=== PATIENT | male | born 1995 | race Caucasian/White ===

== ENCOUNTER 2016-10-08 12:25 | Inpatient (IN) | payer BC, OTHER ==
[2016-10-08] MEDS ORDERED: NS 0.9% 1000 ML* 1,000 ML IV ONE (13:13)
[2016-10-08] MEDS ORDERED: NS 0.9% 1000 ML* 1,000 ML IV SCH (13:15)
--- NOTE | 2016-10-08 13:30 | ED ---
Brijesh Engel Adam, scribed for Auera Garcia MD on 10/08/16 at 1310 . Abdominal Pain/Male - HPI Summary HPI Summary: Pt is a 20yo male who is transferred from [facility] with abdominal pain and a diagnosis of free air on CT scan. Pt states was in usual state of health yesterday morning. Pt reports having abdominal discomfort that developed through the late afternoon and evening. Pt states had decreased appetite sat dinner. Pt reports pain in right side - upper and lower quad as well as LLQ. Pt with discomfort in right testicle with urination. No dysuria, hematuria. Pt reports chills and sweats, no documented fever. Pt states vomited this morning. Pain worsens with movement, and nothing seems to relieve it. He has not had pain like this before. Pt denies trauma. Pt states smoke THC yesterday 5 hours prior to pain. Pt denies diarrhea. Pt was examined at [facility] - had a CT scan which revealel free air. Pt was given analgesia, Vanco, and antiemetic - Pt transferref for eval by surgery. Pt states no nausea at presents. Rates pain 5/10. Pt smoke 1ppd. 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 Negative: Diaphoresis, Cough, Chest Pain, Dizzy, Back Pain, Diarrhea - Allergies/Home Medications Allergies/Adverse Reactions: Allergies Allergy/AdvReac Type Severity Reaction Status Date / Time Penicillins [PCN] Allergy Unknown Verified 10/08/16 13:43 Reaction Details Sulfa Antibiotics Allergy Unknown Verified 10/08/16 13:43 Reaction Details PMH/Surg Hx/FS Hx/Imm Hx Previously Healthy: Yes - Surgical History Surgery Procedure, Year, and Place: Inguinal hernia repain, tonsillectomy - Immunization History Date of Tetanus Vaccine: Up to Date Infectious Disease History: No Infectious Disease History: Denies: Traveled Outside the [place] in Last 30 Days - Family History Known Family History: Positive: Cardiac Disease, Hypertension, Diabetes - Social History Occupation: Employed Full-time Lives: With Family - Father Alcohol Use: None Hx Substance Use: Yes Substance Use Type: Reports: Marijuana Hx Tobacco Use: Yes Smoking Status (MU): Current Every Day Smoker Review of Systems Positive: Fever, Chills, Skin Diaphoresis Eyes: Negative ENT: Negative Cardiovascular: Negative Negative: Chest Pain Negative: Shortness Of Breath, Cough Positive: Abdominal Pain, Nausea. Negative: Diarrhea Genitourinary: Negative Positive: other - Right testicular pain. Dark urine. Skin: Negative Neurological: Negative Psychological: Normal All Other Systems Reviewed And Are Negative: Yes Physical Exam Triage Information Reviewed: Yes Vital Signs On Initial Exam: Initial Vitals Temp Pulse Resp BP Pulse Ox 100.8 F 85 18 116/58 98 10/08/16 12:34 10/08/16 12:34 10/08/16 12:34 10/08/16 12:34 10/08/16 12:34 Vital Signs Reviewed: Yes Appearance: Positive: Ill-Appearing - uncomfortable with movement, Pain Distress Skin: Positive: Warm, Skin Color Reflects Adequate Perfusion, Dry Head/Face: Positive: Normal Head/Face Inspection Eyes: Positive: Normal ENT: Positive: Pharynx normal Neck: Positive: Supple, Nontender Respiratory/Lung Sounds: Positive: Clear to Auscultation, Breath Sounds Present Cardiovascular: Positive: Normal, RRR. Negative: Murmur Abdomen Description: Positive: Distended, Guarding, Peritoneal Signs - +Rosving' s. Negative: Nontender - diffusely tender, increased right upper and right lower quad. + guarding, + distendedn, Soft Bowel Sounds: Positive: Hypoactive Musculoskeletal: Positive: Normal, Strength/ROM Intact Neurological: Positive: Normal, Alert, Oriented to Person Place, Time. Negative : Slurred Speech Psychiatric: Positive: Normal AVPU Assessment: Alert - Gagandeep Coma Scale Best Eye Response: 4 - Spontaneous Best Motor Response: 6 - Obeys Commands Best Verbal Response: 5 - Oriented Coma Scale Total: 15 Diagnostics - Vital Signs Vital Signs Temp Pulse Resp BP Pulse Ox 10/08/16 12:44 88 97 10/08/16 12:34 100.8 F 85 18 116/58 98 - Laboratory Result Diagrams: 10/08/16 13:55 10/08/16 13:55 Lab Statement: Any lab studies that have been ordered have been reviewed, and results considered in the medical decision making process. Re-Evaluation - Re-Evaluation First Eval Re-Evaluation Time: 14:00 Comment: updated family regarding CT result, plan for surgery to eval, additional abx Second Eval Re-Evaluation Time: 15:07 Comment: pt states pain controlled - Dr. Jeronimo met pt - plan for OR at 1800 per pt and RN Abdominal Pain Fem Course/Dx - Course Assessment/Plan: Pt transferred [facility] with free air on CT and leukocytosis without clear source. Will recheck labs. IVF. NPO. d/w Dr. Jeronimo and Dr. Mckinley. close reassessment. d/w pt and family labs and CT results from OSH - Diagnoses Provider Diagnoses: Free intraperitoneal air, Leukocytosis - Provider Notifications Discussed Care Of Patient With: 13:30 Dr. Mckinley -reviewed CT scan - appendix appears wnl, + free air and peritoneal fluid - unclear source. 1328: Dr. Jeronimo - additional IVF, Additional abx, will come see pt - no APAP Discharge - Discharge Plan Condition: Guarded Disposition: ADMITTED TO [facility] Referrals: Macario Orellana MD [Primary Care Provider] - The documentation as recorded by the Brijesh aguilar Adam accurately reflects the service I personally performed and the decisions made by me, Aurea Garcia MD.
[2016-10-08] MEDS ORDERED: Ciprofloxacin 400MG IVPREMIX(* 400 MG/200 ML BAG IVPB ONE (13:34)
[2016-10-08] MEDS ORDERED: metroNIDAZOLE IV 500 MG/100ML* 500 MG/100 ML BAG IVPB ONE (13:34)
[2016-10-08 14:13] LABS: Hematocrit 47 % (42-52); Hemoglobin 15.8 g/dl (14.0-18.0); Mean Corpuscular HGB Conc 33 g/dl (31-36); Mean Corpuscular Hemoglobin 29 pg (27-31); Mean Corpuscular Volume 88 fL (80-94); Mean Platelet Volume 8 um3 (7.4-10.4); Red Blood Count 5.39 10^6/ul (4.0-5.4); Red Cell Distribution Width 13 % (10.5-15); White Blood Count 21.6 10^3/ul (3.5-10.8)
[2016-10-08 14:15] LABS: Add Diff/Slide Review? Slide Review Added; Comments Flag Yes
[2016-10-08 14:27] LABS: Albumin 3.9 g/dL (3.2-5.2); Calcium 9.1 mg/dL (8.6-10.3); EGFR African American 130.3 (>60); EGFR Non-African American 101.3 (>60); Globulin 2.2 g/dL (2-4); Potassium 4.3 mmol/L (3.5-5.0); Total Bilirubin 0.8 mg/dL (0.2-1.0); Total Protein 6.1 g/dL (6.4-8.9)
[2016-10-08] MEDS ORDERED: Bupivacaine 0.25% EPI 200,000* 30 ML SDV ONE (18:16)
[2016-10-08] MEDS ORDERED: Midazolam* 1 MG/ML 5 ML VIAL (5 MG) ONE (18:43)
[2016-10-08] MEDS ORDERED: Succinylcholine* 20 MG/ML 10 ML VIAL ONE (18:46)
[2016-10-08] MEDS ORDERED: Atracurium* 10 MG/ML 10 ML VIAL ONE (18:46)
[2016-10-08] MEDS ORDERED: Propofol* 10 MG/ML 20 ML BTL IV PUSH ONE ×2 (18:46→20:21)
[2016-10-08] MEDS ORDERED: fentaNYL* 50 MCG/ML 5 ML VIAL (250 MCG VIAL) ONE (18:46)
[2016-10-08] MEDS ORDERED: fentaNYL* 50 MCG/ML 2 ML VIAL (100 MCG VIAL) ONE (19:56)
[2016-10-08] MEDS ORDERED: HYDROmorphone INJ* 1 MG/ML CARPUJECT SYRINGE ONE (20:22)
[2016-10-08] MEDS ORDERED: Ondansetron INJ* 2 MG/ML VIAL ONE (20:22)
[2016-10-08] MEDS ORDERED: Phenylephrine 1% NASAL* 15 ML BOT ONE (20:28)
--- NOTE | 2016-10-08 20:37 | SURGPN ---
Brief Operative Note - Surgery Procedures: Pre-OP Diagnoses: Abdominal pain r/o perforated peptic ulcer Post-op Diagnosis: Perforated duodenal ulcer Procedure: Diagnostic laparoscopy, abdominal washout, zuri patch Surgeon: Kandace Asst: Carmelina Anethesia: Jose Armando Palacio EBL: minimal IVF: 2500cc LR Specimen: none Drains: #10 LORI Findings <1cm perforated ulcer Complications: None
[2016-10-08] MEDS ORDERED: Ketorolac INJ* 30 MG/ML 1 ML VIAL IM PRN (20:38)
[2016-10-08] MEDS ORDERED: Ondansetron INJ* 2 MG/ML VIAL IV PRN ×2 (20:38→20:49)
[2016-10-08] MEDS ORDERED: Morphine INJ* 2 MG/ML 1 ML CARPUJECT IV PRN (20:40)
[2016-10-08] MEDS ORDERED: HYDROmorphone INJ* 1 MG/ML CARPUJECT SYRINGE IV PRN (20:49)
[2016-10-08] MEDS ORDERED: DiMENhydriNATE IV* 50 MG/ML VIAL IV PUSH PRN (20:49)
[2016-10-08] MEDS ORDERED: Acetaminophen IV 1GM/100ML * 100 ML IVPB ONE (20:49)
[2016-10-08] MEDS ORDERED: fentaNYL* 50 MCG/ML 2 ML VIAL (100 MCG VIAL) IV PRN (20:49)
[2016-10-08] MEDS ORDERED: Acetaminophen IV 1GM/100ML * 100 ML ONE (20:53)
[2016-10-08] MEDS ORDERED: Piperac/Tazob 3.375 gm in NS* 3.375 GM/100 ML BAG IVPB ONE (21:00)
--- NOTE | 2016-10-08 21:01 | HP ---
ADMISSION HISTORY AND PHYSICAL: DATE OF ADMISSION: 10/08/16 ATTENDING SURGEON: Scott Jeronimo MD (dictated by NEEL Vaca) CHIEF COMPLAINT: Abdominal pain. HISTORY OF PRESENT ILLNESS: This is a 20-year-old male who was in his usual state of health on 10/07/16 though with decreased appetite in the evening at supper. He did have some boneless chicken to eat. He was awaken by midabdominal pain around 5:30 this morning. This started in the periumbilical area and has remained there though with some radiation to the left and right largely based on his position. He reports fever and chills as well as nausea and vomiting. He had a normal bowel movement yesterday. He has not had any diarrhea. He has not had any similar pain previously. He states his pain levels up to 9/10 and presently is 6/10. His only previous abdominal surgery was a left inguinal herniorrhaphy as a child. PAST MEDICAL HISTORY: Unremarkable for any chronic or active medical problems. He has had some recent dental pain for which he has been using ibuprofen p.r.n., but not on a frequent or daily basis. He states that he had a heart murmur as a child, but this has not been noticed in recent years. PAST SURGICAL HISTORY: Tonsillectomy, left inguinal herniorrhaphy. MEDICATIONS: Panp-iqr-ddiryvv ibuprofen 200 mg 2 tablets 1 to 2 times per day p.r.n. for tooth pain (does not use daily). DRUG ALLERGIES: PENICILLIN and SULFA (rash and/or hives). SOCIAL HISTORY: The patient is currently smoker up to 1 pack per day for the past 6 years. He drinks only about once a month, but will have between 7 to 9 drinks at that one time. He also admits to smoking marijuana 4 to 7 times per day. He denies other recreational drug use. REVIEW OF SYSTEMS: General: No other recent acute illnesses other than his dental pain. Cardiovascular: No chest pain, palpitations. Respiratory: No history of asthma, shortness of breath, chronic cough. Smoking history as noted. GI: As above. No additions. : He denies dysuria or hematuria. He does note that his urine appears to be more concentrated. Endocrine: No diabetes or thyroid dysfunction. Musculoskeletal: No problems reported. Neurological: No problems reported. Hematological/immunological: No problems reported. Specifically, no history of blood clotting or bleeding disorders. PHYSICAL EXAMINATION GENERAL: Well nourished, somewhat thin male, in mild distress, somewhat somnolent presumably from pain medication. VITAL SIGNS: Height 6 feet 1 inches, weight 150 pounds (he does note approximately 10 to 12 pounds unintentional weight loss over the last 1 to 2 months), temperature 100.8, blood pressure 120/67, pulse 104, respirations 18, room air saturation 97%. HEENT: Pupils are equal and round, reactive to light. EOMs intact. No conjunctival pallor or scleral icterus. Oropharynx: Teeth in fair repair. No intraoral lesions. SKIN: Warm and dry. No suspicious rashes or lesions. NECK: No lymphadenopathy, thyromegaly, or masses. HEART: Mildly tachycardic. No murmur noted. LUNGS: Clear to auscultation. No wheezes. ABDOMEN: Flat, but mild distention. He has hypoactive bowel sounds. Abdomen is firm with guarding and diffuse tenderness. There are no masses or organomegaly. There is a well healed scar from prior left inguinal herniorrhaphy. GENITALIA: Not otherwise examined. RECTAL: Not done. BACK: No spinous process or CVA tenderness. EXTREMITIES: No edema. NEUROLOGICAL: Grossly intact. LABORATORY DATA: White blood cell count 21,600 with left shift, hemoglobin 15.8. Electrolytes, liver function test, and lactic acid were all normal. CT scan by report showed free air (scan was reviewed by Dr. Jeronimo, but not by myself personally). IMPRESSION: Acute abdomen with perforated hollow viscus. PLAN: Diagnostic laparoscopy possible laparotomy. NEEL ELDER CC: Dr. Scott Jeronimo; Dr. Macario Orellana * [id number]/[facility] #: [id number] [facility] CENTERDamaris
[2016-10-08] MEDS: Heparin VIAL(*) 5000 UNITS/ML VIAL (FIVE THOUSAND) SUBCUT SCH (22:37)
[2016-10-08] MEDS: Ketorolac INJ* 30 MG/ML 1 ML VIAL IV PRN (23:15)
[2016-10-09] MEDS: Piperac/Tazob 3.375 gm in NS* 3.375 GM/100 ML BAG IVPB SCH ×6 (01:45→19:46)
--- NOTE | 2016-10-09 02:45 | OP ---
DATE OF OPERATION: 10/08/16 - ROOM #340 DATE OF : [birth year] SURGEON: Scott Jeronimo MD ANESTHESIOLOGIST: Luke Hopson MD ANESTHESIA: General PRE-OP DIAGNOSIS: Abdominal pain, rule out perforated peptic ulcer. POST-OP DIAGNOSIS: Perforated duodenal ulcer. OPERATIVE PROCEDURE: Diagnostic laparoscopy, abdominal washout, Pancho patch. INDICATIONS: Mr. Sierra is a 20-year-old gentleman transferred from [facility] after workup was suggestive of a perforated viscus. The patient was seen and evaluated in the emergency room. I discussed with him and his family members the consideration that the patient had perforated viscus and likely a perforated peptic ulcer. I outlined the details of recommended procedure, given that the patient had peritoneal signs that we would take him to the operating room and do a diagnostic laparoscopy, possible laparotomy. My intent was to do a temporizing procedure with likely patching of any type of ulcer. We discussed briefly any definitive treatments for ulcer disease. This was touched upon briefly and the patient and the patient's family agreed that we would not go forward for any definitive or more durable procedure for this purpose, rather to get him through this acute stage. We also discussed the possible complications of other disease state including perforated appendicitis and perforated diverticulitis. They agreed and wished to proceed. We spoke of the possible complications which included but not limited to bleeding, infection , need for open procedure, need for additional procedures, need for drainage, and prolonged hospital course, and even return to operating room. Consent was signed and the patient agreed to this. DESCRIPTION OF PROCEDURE: He was identified in the preoperative area, marked, brought to the operating room, placed on the operating table in the supine position. The patient received Flagyl and earlier Cipro in the emergency room. Sequential devices were placed on bilateral lower extremities. General anesthesia was induced. Rolle catheter was inserted. The patient's abdomen was clipped of hair and then prepped and draped in the standard surgical fashion and a time-out was performed. The folds of the umbilicus were elevated anteriorly and a Veress needle was inserted into the abdominal cavity, which was then allowed to insufflate to a pressure of 15 mmHg. The patient tolerated the insufflation well. A supraumbilical incision was made and a 12-mm trocar was inserted at this site. Laparoscope was inserted through this and there was no evidence of injury from trocar insertion or from the Veress needle, which was then removed. Review of the abdomen showed opaque yellow green fluid. Additional trocars were then placed in the following position: a 5 mm in the left upper quadrant, 5 mm in the right upper quadrant. This fluid was suctioned off. No cultures were taken. This had notable exudative tissue at the site of the anterior duodenum. Fluid was identified throughout the abdomen and the pelvis above the liver and above the spleen, these were suctioned off. Attention was then turned towards the stomach, anterior wall of the stomach appeared intact. The omentum at the duodenum was then gently swept away. No ulcer was appreciated at this point though. Attention was then turned back to the pelvis. We reviewed the cecum, the appendix, which appeared normal with the exception of some secondary injection. The attention was then turned towards the right lateral side of the omentum. This was then drawn cephalad and to the left. This led us to watch as it extended under the surface of the gallbladder. The gallbladder was grasped at the fundus and elevated above the liver and this gave us the opportunity to bluntly dissect and this was when we found an approximately 6 mm opening on the anterior duodenum. No significant drainage was appreciated in this. The exudative tissue was identified, but there did not appear to be a lesion. An additional 5-mm trocar was then placed on the right lateral side and this allowed the gallbladder fundus to be elevated anteriorly. This fully gave us the ability to appreciate the edges of the ulcer. Next, it was decided to perform a Pancho patch on this. Utilizing 2-0 silk sutures, we placed them through the duodenum along the transverse access. After placing two sutures, a tongue of omentum was then brought up into the site of the sutures to create a patch and the sutures were tied down without too much tension. They did not rip and the omentum stayed put in its location. There was no drainage. Next, copious irrigation was used above the liver and spleen and in the pelvis and at this gallbladder fossa along the duodenum. Next, a #10 LORI drain was placed into the abdomen and brought out through the right lateral most port site and sutured to the skin with a 3-0 Surgipro suture, was placed in Morison' s pouch, and draped over the Pancho patch. Next, the abdomen was allowed to collapse. Trocars were removed under direct vision. Hemostasis was excellent. The anterior fascia at the periumbilical 10 mm-port site was reapproximated with an 0 Polysorb suture in a figure-of-8 fashion, and all four skin incisions were reapproximated with skin timothy, followed by sterile dressing. The patient tolerated the procedure well, was woken up in the OR, and transferred to the PACU in stable condition. Rolle catheter removed, but NG tube remained. CC: [facility]; Dr. Macario Orellana * [id number]/[facility] #: [id number] MTDD
[2016-10-09] MEDS: Ketorolac INJ* 30 MG/ML 1 ML VIAL IV PRN ×3 (06:10→19:46)
[2016-10-09] MEDS: Heparin VIAL(*) 5000 UNITS/ML VIAL (FIVE THOUSAND) SUBCUT SCH ×3 (06:10→22:11)
[2016-10-09 07:16] LABS: BUN/Creatinine Ratio 15.2 (8-20); Calcium 8.2 mg/dL (8.6-10.3); EGFR African American 133.6 (>60); EGFR Non-African American 103.9 (>60); Potassium 3.9 mmol/L (3.5-5.0)
[2016-10-09 07:30] LABS: Hematocrit 39 % (42-52); Hemoglobin 13.1 g/dl (14.0-18.0); Mean Corpuscular Volume 88 fL (80-94); Red Blood Count 4.42 10^6/ul (4.0-5.4); White Blood Count 15.3 10^3/ul (3.5-10.8)
[2016-10-09 07:31] LABS: Mean Corpuscular HGB Conc 34 g/dl (31-36); Mean Corpuscular Hemoglobin 30 pg (27-31); Mean Platelet Volume 9 um3 (7.4-10.4); Red Cell Distribution Width 13 % (10.5-15)
[2016-10-09] MEDS: Pantoprazole IV* 40 MG IV SCH (08:14)
[2016-10-09] MEDS: D5W 1/2 NS KCl 20 Meq 1000 ML* 1,000 ML IV SCH ×2 (09:01→20:55)
--- NOTE | 2016-10-09 12:24 | PN ---
Progress Note - Progress Note SOAP: Subjective: Pt seen and examined. Feels ok. Still with abdo pain. no flatus, no nausea. NGT clamped overnight 2ary to no order for suction. Objective: af vss lungs clear b/l abdo: tender, ND. LORI serous no calf tenderness Assessment: POD 1 zuri patch Plan: pain control OOB PPI UGI in am
[2016-10-09] MEDS: Nicotine PATCH 14 MG/24 HR* PATCH TRANSDERM SCH (12:37)
--- NOTE | 2016-10-09 15:31 | RAD ---
INDICATION: 1 day postop surgical repair of a perforated ulcer along the anterior margin of the duodenum. Assess for enteric leak. COMPARISON: October 08, 2016 CT. TECHNIQUE: The patient swallowed Gastrografin contrast under fluoroscopic observation. Multiple spot images obtained. 0.7 minutes fluoroscopy. FINDINGS: Tip of nasogastric tube at level of gastric body antrum junction directed distal. Midline to RIGHT abdomen surgical drain in place. Cutaneous timothy from laparoscopy port sites. Orally ingested Gastrografin contrast passed through the stomach and duodenum into the small bowel without significant delay. No evidence for enteric leak or bowel obstruction. IMPRESSION: No evidence for enteric leak. CPT II Codes: 6045F
[2016-10-09] MEDS: Nicotine Patch Removal NOTE PATCH OFF SCH (20:56)
[2016-10-10] MEDS: Piperac/Tazob 3.375 gm in NS* 3.375 GM/100 ML BAG IVPB SCH ×4 (02:08→19:59)
[2016-10-10] MEDS: Heparin VIAL(*) 5000 UNITS/ML VIAL (FIVE THOUSAND) SUBCUT SCH ×3 (06:10→21:43)
[2016-10-10] MEDS: D5W 1/2 NS KCl 20 Meq 1000 ML* 1,000 ML IV SCH ×2 (07:06→18:57)
[2016-10-10] MEDS: Ketorolac INJ* 30 MG/ML 1 ML VIAL IV PRN (08:06)
[2016-10-10] MEDS: Pantoprazole IV* 40 MG IV SCH (08:06)
[2016-10-10] MEDS: Nicotine PATCH 14 MG/24 HR* PATCH TRANSDERM SCH (08:06)
--- NOTE | 2016-10-10 12:19 | PN ---
Progress Note - Progress Note SOAP: Subjective: Pt seen and examined. Feels ok. Still with abdo pain. no flatus, no nausea. NGT dislodged overnight. Objective: af vss lungs clear b/l abdo: NT, ND. LORI serous no calf tenderness UGI : no leak Assessment: POD 2 zuri patch Plan: pain control OOB PPI PO diet
[2016-10-10] MEDS: Nicotine Patch Removal NOTE PATCH OFF SCH (20:02)
[2016-10-11] MEDS: Piperac/Tazob 3.375 gm in NS* 3.375 GM/100 ML BAG IVPB SCH ×4 (02:14→20:46)
[2016-10-11] MEDS ORDERED: Acetaminophen TAB* 325 MG PO PRN (03:32)
[2016-10-11] MEDS ORDERED: Acetaminophen TAB* 325 MG ONE (04:01)
[2016-10-11] MEDS: D5W 1/2 NS KCl 20 Meq 1000 ML* 1,000 ML IV SCH (05:55)
[2016-10-11] MEDS: Heparin VIAL(*) 5000 UNITS/ML VIAL (FIVE THOUSAND) SUBCUT SCH ×3 (05:55→22:05)
[2016-10-11 07:21] LABS: Hematocrit 37 % (42-52); Hemoglobin 12.8 g/dl (14.0-18.0); Mean Corpuscular HGB Conc 35 g/dl (31-36); Mean Corpuscular Hemoglobin 30 pg (27-31); Mean Corpuscular Volume 87 fL (80-94); Mean Platelet Volume 9 um3 (7.4-10.4); Red Blood Count 4.24 10^6/ul (4.0-5.4); Red Cell Distribution Width 13 % (10.5-15); White Blood Count 12.6 10^3/ul (3.5-10.8)
[2016-10-11] MEDS: Nicotine PATCH 14 MG/24 HR* PATCH TRANSDERM SCH (08:16)
[2016-10-11] MEDS: Pantoprazole IV* 40 MG IV SCH (08:22)
--- NOTE | 2016-10-11 10:33 | PN ---
Progress Note - Progress Note SOAP: Subjective: Pt seen and examined. Feels ok. Still with right sided abdo pain. positive flatus, no nausea. spiked fever to 101 overnight, with sweats/chills Objective: af vss positive I/Os lungs clear b/l abdo: tender at RUQ, no rebound, ND. LORI serous no calf tenderness WBC 10/08/16 10/09/16 10/11/16 13:55 06:44 06:49 WBC 21.6 10^3/ul H 10^3/ul 15.3 10^3/ul H 10^3/ul 12.6 10^3/ul H 10^3/ul (3.5-10.8) (3.5-10.8) (3.5-10.8) Assessment: POD 3 zuri patch Plan: pain control OOB PPI advance diet ivlock
[2016-10-11] MEDS: oxyCODONE/Acetamin 5/325 MG* TAB PO PRN ×2 (14:19→20:52)
[2016-10-11] MEDS: Nicotine Patch Removal NOTE PATCH OFF SCH (20:53)
[2016-10-12] MEDS: Piperac/Tazob 3.375 gm in NS* 3.375 GM/100 ML BAG IVPB SCH ×4 (02:29→19:46)
[2016-10-12] MEDS: oxyCODONE/Acetamin 5/325 MG* TAB PO PRN ×2 (03:58→22:23)
[2016-10-12] MEDS: Heparin VIAL(*) 5000 UNITS/ML VIAL (FIVE THOUSAND) SUBCUT SCH ×3 (06:17→22:20)
[2016-10-12] MEDS: Nicotine PATCH 14 MG/24 HR* PATCH TRANSDERM SCH (07:09)
[2016-10-12] MEDS: Pantoprazole IV* 40 MG IV SCH (08:28)
--- NOTE | 2016-10-12 12:08 | PN ---
Progress Note - Progress Note SOAP: Subjective: Pt seen and examined. Feels good. Appetite returning Objective: af vss lungs clear b/l abdo: tender at RUQ, no rebound, ND. LORI serous, normoactive BS no calf tenderness Assessment: POD 4 zuri patch; no fever for 24hrs Plan: pain control CT a/p if spikes fever again PPI advance diet ivlock possible d/c tomorrow
[2016-10-12] MEDS: Nicotine Patch Removal NOTE PATCH OFF SCH (19:49)
[2016-10-13] MEDS: Piperac/Tazob 3.375 gm in NS* 3.375 GM/100 ML BAG IVPB SCH ×2 (02:13→08:03)
[2016-10-13] MEDS: Heparin VIAL(*) 5000 UNITS/ML VIAL (FIVE THOUSAND) SUBCUT SCH (05:42)
[2016-10-13 07:57] VITALS: BP 109/67
[2016-10-13] MEDS: Pantoprazole IV* 40 MG IV SCH (07:59)
[2016-10-13] MEDS: Nicotine PATCH 14 MG/24 HR* PATCH TRANSDERM SCH (08:53)
--- NOTE | 2016-10-13 09:29 | PN ---
Progress Note - Progress Note Note: S: See dictated discharge summary. Seen earlier this a.m. by Dr. Jeronimo. Doing well. No problems reported. No requiring any analgesics. Holly reg diet. O: Vital Signs - 8 hr 10/13/16 10/13/16 10/13/16 03:34 07:29 08:00 Temperature 97.6 F 97.6 F Pulse Rate 54 45 Respiratory 18 17 17 Rate Blood Pressure 120/69 109/67 (mmHg) O2 Sat by Pulse 100 99 99 Oximetry Intake and Output Last 24 Hours 10/11/16 10/12/16 10/13/16 10/14/16 06:59 06:59 06:59 06:59 Intake Total 4320 2967 2320 Output Total 940 188 510 Balance 3380 2779 1810 Intake: IV Fluids 3210 531 60 ABX - ZOSYN 210 D5W 1/2 NS 20 meq KCL 3000 471 NS 60 60 IVPB 416 210 ABX - ZOSYN 416 210 Oral 1110 2019 2049 Output: LORI #1 140 188 185 Urine 800 325 Other: Estimated Void Medium Medium Medium Date of Last Bowel 10/12/16 Movement # Bowel Movements 0 1 1 Estimated Stool Amount Medium Small # Voids 3 4 1 Abd: LORI: clear serous -> d/c'd; DSD placed. Staple from supraumbilical port site removed; steristrip placed A/P: POD #5 s/p laparoscopic repair perf'd duodenal ulcer w/ Pancho patch, doing well, ready for d/c. Will order stool for H pylori antigen. Rx: omeprazole x 8wks. Office f/u 1 wk w/ Dr. Jeronimo.
--- NOTE | 2016-10-14 02:01 | DS ---
DISCHARGE SUMMARY: DATE OF ADMISSION: 10/08/16 DATE OF DISCHARGE: 10/13/16 HOSPITAL COURSE: Please refer to admission history and physical for admission details. Briefly, the patient is a 20-year-old generally healthy male who presented with free air, and was taken to the operating room the evening of 10/08/16. He underwent laparoscopic washout with repair of a perforated duodenal ulcer utilizing Pancho patch technique. He was maintained on postoperative IV Zosyn as well as Protonix. He is also given nicotine replacement therapy, which by the time of discharge, he was declining and verbalized a commitment to smoking cessation. PHYSICAL EXAMINATION: Vital signs the morning of discharge, temperature 97.6, blood pressure 109/67, pulse 45, respirations 17, room air saturation 99%. General: Appears well and in no acute distress. Not requiring any analgesics. He was seen and examined earlier by Dr. Jeronimo. Abdomen is notable for laparoscopic port sites, which were healing well without evidence of infection. One of the timothy had been partially removed inadvertently and was removed the rest of it today. The remaining timothy were left in place until his office followup. [place] drainage was minimal clear serous drainage and was therefore removed prior to discharge. The patient was given instructions regarding wound care and activity. DISCHARGE MEDICATIONS: Will include: 1. Omeprazole 40 mg once daily. 2. He may use Tylenol p.r.n. for pain, but should avoid aspirin and other antiinflammatories. DIET: As tolerated though advised to avoid hot or spicy foods. FOLLOWUP INSTRUCTIONS: He has a followup with Dr. Jeronimo in our office on . Stool for H. pylori antigen is pending as of the morning of discharge. NEEL ELDER CC: [facility]; Dr. Macario Orellana* [id number]/[facility] #: [id number] MTDD
== END 2016-10-13 10:50 | disposition home or self-care (01) | DRG 223 ==
LOC: ED 12:25 → SDS 16:53 → SSU 22:01
PROVIDERS: ADMIT Surgery; ATTEND Surgery
PROC: 0DU947Z Supplement Duodenum with Autologous Tissue Substitute, Percutaneous Endoscopic Approach (ICD-10-PCS; principal; 2016-10-08 17:30)
DX: K26.1 Acute duodenal ulcer with perforation (principal); F17.210 Nicotine dependence, cigarettes, uncomplicated; Z88.0 Allergy status to penicillin; Z88.2 Allergy status to sulfonamides
CPT/HCPCS: 36415; 74246; 80048; 80053; 83605; 85025; 85027; 85610; 85730; 87040; 87338; 94760; 99406; A9270-GY; J0330; J0744; J1170; J1644; J1885; J2250; J2270; J2405; J2543; J2704; J3010; J3490